=== PATIENT | male | born 1985 | race African-American/Black ===

== ENCOUNTER 2019-06-15 19:32 | Emergency (ER) | payer SELFPAY ==
[2019-06-15] MEDS ORDERED: IPRATROPIUM/ALBUTEROL 0.5-2.5 MG/3 ML AMPUL NEB ONE (21:13)
[2019-06-15] MEDS ORDERED: PREDNISONE 20 MG TABLET PO ONE (21:14)
[2019-06-15] MEDS ORDERED: ALBUTEROL SULFATE HFA (90 MCG/PUFF) 8 GM MDI (1 MDI/ER DISP) IH ONE (23:00)
--- NOTE | 2019-06-15 23:02 | ER Document Report ---
HPI - HPI Time Seen by Provider: 06/15/19 21:14 Pain Level: Denies Context: Patient is a 33-year-old male with a history of asthma that comes emergency department for chief complaint of worsening wheezing over the course of today. He states that he has not had a cough, fever, congestion, sore throat. He does not smoke cigarettes. He states he has not had much trouble with his asthma since he was a teenager, he occasionally uses his child's albuterol as needed. Patient had already received a DuoNeb and prednisone on my evaluation, he states wheezing is resolved, he has no shortness of breath, he denies any current complaints. Past Medical History - General Information source: Patient - Social History Smoking Status: Never Smoker Chew tobacco use (# tins/day): No Frequency of alcohol use: Occasional Drug Abuse: Marijuana Lives with: Family Family History: Reviewed & Not Pertinent Patient has suicidal ideation: No Patient has homicidal ideation: No Pulmonary Medical History: Reports: Hx Asthma - Immunizations Immunizations up to date: Yes Hx Diphtheria, Pertussis, Tetanus Vaccination: Yes Vertical Provider Document - CONSTITUTIONAL General Appearance: WD/WN, No Apparent Distress - HEENT HEENT: Atraumatic, Normal ENT Exam, Normocephalic - NECK Neck: Normal Inspection - RESPIRATORY Respiratory: Breath Sounds Normal, No Respiratory Distress. negative: Wheezing - CARDIOVASCULAR Cardiovascular: Regular Rate, Regular Rhythm. negative: Tachycardia - GI/ABDOMEN Gastrointestinal: Abdomen Soft, Abdomen Non-Tender. negative: Abdomen Tender - BACK Back: Normal Inspection - MUSCULOSKELETAL/EXTREMETIES Musculoskeletal/Extremeties: MAEW, FROM, Non-Tender - NEURO Level of Consciousness: Awake, Alert, Appropriate Motor/Sensory: No Motor Deficit, No Sensory Deficit - DERM Integumentary: Warm, Dry, No Rash Course - Re-evaluation Re-evalutation: On my exam patient does not have any wheezing, does not have any complaints. Symptoms resolved after a DuoNeb, he was started on prednisone. He does not have his own inhaler he will be provided with this. Provided with spacer as well. He is requesting discharge. He denies any sick symptoms including fever, cough, congestion, and he has no current symptoms. As result I do suspect this is asthma and I have low suspicion of infectious cause. I discussed follow-up and return precautions in detail. Patient states appreciation and agreement. - Vital Signs Vital signs: Temp Pulse Resp BP Pulse Ox 98.1 F 92 26 H 150/102 H 92 06/15/19 20:24 06/15/19 21:16 06/15/19 21:16 06/15/19 21:16 06/15/19 21:16 Discharge - Discharge Clinical Impression: Wheezing Asthma exacerbation Qualifiers: Asthma severity: mild Asthma persistence: intermittent Qualified Code(s): J45.21 - Mild intermittent asthma with (acute) exacerbation Condition: Stable Disposition: HOME, SELF-CARE Additional Instructions: Your evaluation is consistent with an asthma exacerbation. Use the prednisone as prescribed (avoid foods with carbohydrates, drink plenty of fluids while taking). Use albuterol inhaler with spacer if needed. Follow-up with primary care for additional management. Return if you worsen including developing fever, difficulty breathing, chest pain, or any other concerning or worsening symptoms. Prescriptions: Prednisone [Deltasone 20 mg Tablet] 3 tab PO DAILY 5 Days #15 tablet Albuterol Sulfate [Proair HFA Inhalation Aerosol 8.5 gm MDI] 2 puff IH Q4H PRN #1 mdi PRN Reason: Forms: Elevated Blood Pressure
[2019-06-15 23:34] VITALS: BP 155/95
== END 2019-06-15 23:13 | disposition home or self-care (01) ==
LOC: ER 19:32
DX: J45.21 Mild intermittent asthma with (acute) exacerbation (principal); F12.10 Cannabis abuse, uncomplicated
CPT/HCPCS: 94640; 99284; J7512; J7620